=== PATIENT | female | born 1985 | race Caucasian/White ===

== ENCOUNTER 2019-05-17 00:37 | Emergency (ER) | payer BC, OTHER ==
[~2019-05-17] VITALS: Ht 165.1 cm; Wt 88.6 kg
[2019-05-17 00:38] VITALS: BP 133/64
[2019-05-17] MEDS ORDERED: CIMZ200K SC (00:46)
[2019-05-17] MEDS ORDERED: birth control (00:46)
[2019-05-17] MEDS ORDERED: PRED20TA PO (03:28)
[2019-05-17] MEDS ORDERED: methylPREDNISolone INJ 125 MG/2 ML VIAL (J2930) IM ONE (03:30)
[2019-05-17] MEDS ORDERED: NORCO 5/325MG TABLET (BULK FOR ED) PO ONE (03:30)
[2019-05-17] MEDS ORDERED: MORPHINE 10 MG/ML 1ML VIAL (J2270) IM ONE (03:30)
--- NOTE | 2019-05-17 07:37 | REP ---
Clinical: Pain and swelling Technique: AP, lateral, bilateral oblique and sunrise views left knee . Findings: [place] view demonstrates increase sclerosis along the posterior patellar margin with lateral spurring. Lateral view demonstrates suprapatellar effusion. No acute fracture dislocation. Tibiofemoral joint appears relatively normal for age. Impression: Inflammatory/arthritic changes primarily involving the patellofemoral joint space. Electronically Signed by Neil Gray MD 05/17/2019 07:28 A
== END 2019-05-17 03:53 | disposition home or self-care (01) ==
LOC: M ED 00:37
DX: L40.50 Arthropathic psoriasis, unspecified (principal); G89.29 Other chronic pain; Z79.3 Long term (current) use of hormonal contraceptives; Z79.899 Other long term (current) drug therapy
CPT/HCPCS: 73564; 96372; 99282; J2270; J2930